=== PATIENT | female | born 1965 | race Caucasian/White ===

== ENCOUNTER 2017-05-08 07:40 | Day surgery (SDC) | payer OTHER ==
[~2017-05-08 07:40] MED LIST: Lactated Ringers 1,000 ML IV SCH
[2017-05-08] MEDS ORDERED: Propofol 200 MG/20 ML SDV ONE (08:39)
[2017-05-08] MEDS ORDERED: fentaNYL 100 MCG/2 ML SDV ONE (08:40)
--- NOTE | 2017-05-08 13:11 | OR ---
PREOPERATIVE DIAGNOSIS: Anemia. POSTOPERATIVE DIAGNOSIS: Internal hemorrhoids with bleeding. PROCEDURE PROPOSED: Total flexible colonoscopy. PROCEDURE DONE: Total flexible colonoscopy. INDICATION: This is a 51-year-old female, who comes in for recommended colonoscopy. She was found to be anemic. She claims she has had a positive FIT test in the past and is felt to be due to hemorrhoids. She does have known hemorrhoids and they do bleed intermittently for her. Her last examination was about 5 years ago, it was felt that she should be re-examined today. TECHNIQUE: The patient was brought to the endoscopy suite, placed in left lateral decubitus position. She was sedated per [employer] with propofol. The flexible video colonoscope was then passed transanally and under visualization advanced to the cecum. Examination revealed normal ascending, transverse, descending, sigmoid, and rectal colon. There was no evidence of any colitis, polyps, diverticulosis. She was noted to have a little bit of blood tinged secretions, right in the rectum and also externally when I did a finger exam. This most likely is due to hemorrhoidal bleeding from internal hemorrhoids. She also appears to have some external redundant tissue, possibly some mild prolapsing going on. I do feel that her bleeding is coming from the hemorrhoid area and will be treated with some suppositories initially. IMPRESSION: 1. Normal colonoscopic exam. 2. Internal hemorrhoids with bleeding. PLAN: Anusol HC suppositories nightly for 10 nights. If her bleeding persists, we may consider anoscopy with possible hemorrhoid banding in the office. She can make an appointment at her convenience for that. SCM: 05/08/2017 10:26:55 MODL: 05/08/2017 13:01:51 /[id number]
== END 2017-05-08 11:39 | disposition home or self-care (01) ==
LOC: VM.SDS 07:40
PROVIDERS: ATTEND Surgery
DX: K64.8 Other hemorrhoids (principal); D50.0 Iron deficiency anemia secondary to blood loss (chronic); E03.9 Hypothyroidism, unspecified; E78.00 Pure hypercholesterolemia, unspecified; N39.46 Mixed incontinence; I34.0 Nonrheumatic mitral (valve) insufficiency; Z85.42 Personal history of malignant neoplasm of other parts of uterus; Z79.899 Other long term (current) drug therapy
CPT/HCPCS: J2704; J3010; J7120

== ENCOUNTER 2022-11-05 18:36 | Emergency (ER) | payer OTHER ==
[2022-11-05 19:02] LABS: BASOPHILS PERCENT AUTO 0.6 % (0.2-1.2); EOSINOPHILS ABSOLUTE AUTO 0.2 x10^3/uL (0.0-0.5); EOSINOPHILS PERCENT AUTO 4.8 % (0.0-4.0); HEMATOCRIT 36.6 % (33.0-47.0); HEMOGLOBIN 12.7 g/dL (12.0-16.0); LYMPHOCYTES ABSOLUTE AUTO 0.9 x10^3/uL (1.0-4.8); LYMPHOCYTES PERCENT AUTO 27.7 % (25.0-50.0); MEAN CORPUSCULAR HEMOGLOBIN 29.3 pg (26.0-32.0); MEAN CORPUSCULAR HGB CONC 34.7 g/dL (32.0-36.0); MEAN CORPUSCULAR VOLUME 84.5 fL (78.0-93.0); MONOCYTES ABSOLUTE AUTO 0.3 x10^3/uL (0.0-0.8); MONOCYTES PERCENT AUTO 10.1 % (2.0-11.0); NEUTROPHILS ABSOLUTE AUTO 1.9 x10^3/uL (1.8-7.7); NEUTROPHILS PERCENT AUTO 56.8 % (50.0-80.0); PLATELET COUNT,PLT 142 x10^3/uL (130-400); RED BLOOD CELL COUNT 4.33 x10^6/uL (4.00-5.50); WHITE BLOOD CELL COUNT,WBC 3.4 x10^3/uL (4.0-10.0)
[2022-11-05 19:21] LABS: PROTHROMBIN TIME 10.4 SEC (9.5-12.2); PTT,PARTIAL THROMBOPLSTIN TIME 23.1 SEC (23.6-33.6)
[2022-11-05 19:27] LABS: A/G RATIO 0.93; ALBUMIN 3.7 g/dL (3.4-5.0); BILIRUBIN TOTAL 0.3 mg/dL (0.2-1.0); C-REACTIVE PROTEIN 0.1 mg/dL (<=0.30); CALCIUM 8.8 mg/dL (8.5-10.1); CREATININE 0.9 mg/dL (0.55-1.02); EST CRCL DRUG DOSING (CG) 58.12 mL/min; MAGNESIUM 2.1 mg/dL (1.8-2.4); PHOSPHORUS 3.9 mg/dL (2.6-4.7); PROTEIN TOTAL,TP 7.7 g/dL (6.4-8.2); TSH ULTRASENSITIVE 2.808 uIU/mL (0.358-3.74)
== END 2022-11-05 19:45 | disposition home or self-care (01) ==
LOC: VM.ED 18:36
DX: R00.2 Palpitations (principal); E78.5 Hyperlipidemia, unspecified; E03.9 Hypothyroidism, unspecified; Z79.899 Other long term (current) drug therapy
CPT/HCPCS: 80053; 83735; 83880; 84100; 84443; 84484; 85025; 85610; 85730; 86140; 93005; 99285

== ENCOUNTER 2023-06-12 15:45 | Emergency (ER) | payer OTHER ==
[2023-06-12] MEDS: methylPREDNISolone Sodium Succinate 125 MG/2 ML SDV IV ONE (16:12)
[2023-06-12] MEDS: Ketorolac 15 MG/ML SDV IVPUSH ONE (16:12)
[2023-06-12] MEDS: Orphenadrine 60 MG/2 ML Inj IM ONE (16:13)
[2023-06-12] MEDS: HYDROmorphone 0.5 MG/0.5 ML Syringe IVPUSH ONE ×2 (16:13→17:26)
[2023-06-12] MEDS: Ondansetron 4 MG/2 ML SDV IVPUSH ONE (17:26)
[2023-06-12] MEDS: HYDROmorphone 1 MG/ML Syringe IVPUSH ONE (18:49)
[2023-06-12] MEDS: Ondansetron 4 MG/2 ML SDV ONE (19:25)
== END 2023-06-12 20:00 | disposition home or self-care (01) ==
LOC: VM.ED 15:45
DX: M54.50 Low back pain, unspecified (principal); G89.29 Other chronic pain; E78.00 Pure hypercholesterolemia, unspecified; E03.9 Hypothyroidism, unspecified; Z79.899 Other long term (current) drug therapy
CPT/HCPCS: 96372; 96374; 96375; 96376; 99284; 99284-25; J1170; J1885; J2360; J2405; J2930